=== PATIENT | male | born 1960 | race Caucasian/White ===

== ENCOUNTER 2017-02-23 23:59 | Emergency (ER) | payer SELFPAY ==
[~2017-02-23 23:59] MED LIST: ACET500CAP PO; FLOMAX4 PO; NORV5 PO; PERCOCET1 TA4 PO; SEROQUEL50 MG PO; XARELTO20 MG PO
[2017-02-24 02:48] LABS: BASOPHILS 0.6 %; BASOPHILS ABSOLUTE 0.04 10/3/uL (0.0-0.16); EOSINOPHILS 19.3 %; EOSINOPHILS ABSOLUTE 1.33 10/3/uL (0.0-0.53); HEMOGLOBIN 12.1 g/dL (13.6-17.8); IMMATURE GRANULOCYTES 0.4 %; IMMATURE GRANULOCYTES ABSOLUTE 0.03 10/3/uL (0.0-0.11); LYMPHOCYTES 10.2 %; MEAN CORPUS HGB CONC 34.3 g/dL (32.0-36.0); MEAN CORPUSCULAR HEMOGLOB 32.8 pg (26.0-34.0); MONOCYTES 8.3 %; MONOCYTES ABSOLUTE 0.57 10/3/uL (0.21-1.20); NEUTROPHILS 61.2 %; NEUTROPHILS ABSOLUTE 4.21 10/3/uL (2.02-8.40); PLATELET COUNT 299 10/3/uL (150-400); RBC DISTRIBUTION WIDTH 14.2 % (12.0-16.0); RED CELL COUNT 3.69 10/6/uL (4.7-6.1); WHITE BLOOD CELLS 6.9 10/3/uL (4.5-10.5)
[2017-02-24 02:49] LABS: ER CBC TAT 0 Hrs 05 MinsNP; HEMATOCRIT 35.3 % (40.0-51.0); MANUAL DIFF NO %; MEAN CORPUSCULAR VOLUME 95.7 fL (80-100)
[2017-02-24 03:03] LABS: A/G RATIO 0.8 (0.7-1.9); ALBUMIN 3.2 G/DL (3.5-5.0); ALKALINE PHOSPHATASE 130 U/L (45-117); BUN (BLOOD UREA NITROGEN) 8 MG/DL (6-23); CHLORIDE, SERUM 109 MMOL/L (96-112); CO2 (CARBON DIOXIDE) 21 MMOL/L (24-34); GFR AFRICAN AMERICAN 96 ML/MIN (>=60); GFR NON AFRICAN AMERICAN 83 ML/MIN (>=60); GLOBULIN 3.9 G/DL (2.5-4.1); GLUCOSE, SERUM 99 MG/DL (60-99); POTASSIUM, SERUM 3.8 MMOL/L (3.5-5.3); SGOT(AST) 69 U/L (5-40); SGPT(ALT) 54 U/L (5-65); SODIUM, SERUM 142 MMOL/L (135-148); TOTAL BILIRUBIN 0.3 MG/DL (0-1.2); TOTAL PROTEIN 7.1 G/DL (6.0-8.5)
== END 2017-02-24 09:11 | disposition home or self-care (01) ==
LOC: ER 23:59
PROVIDERS: Nurse Practitioner Acute Care
DX: B86 Scabies (principal); L30.9 Dermatitis, unspecified; B88.9 Infestation, unspecified; Z79.899 Other long term (current) drug therapy
CPT/HCPCS: 80053; 81001; 85025; 87040; 99284; A9270-GY

== ENCOUNTER 2017-03-10 08:36 | Emergency (ER) | payer SELFPAY | END 2017-03-10 09:48 | disposition home or self-care (01) | LOC: ER 08:36 | DX: S42.031A Displaced fracture of lateral end of right clavicle, initial encounter for closed fracture (principal); F31.9 Bipolar disorder, unspecified; Z79.899 Other long term (current) drug therapy; X58.XXXA Exposure to other specified factors, initial encounter | CPT/HCPCS: 73030-RT; 99283; A9270-GY ==

== ENCOUNTER 2017-03-12 20:15 | Emergency (ER) | payer SELFPAY ==
[2017-03-12 19:58] LABS: AMPHETAMINES (NOT ORD) NEG (NEG); BARBITURATES (NOT ORDERED NEG (NEG); BENZODIAZEPINES (NOT ORD) NEG (NEG); CANNABINOIDS (THC) NEG (NEG); COCAINE (NOT ORDERED) NEG (NEG); OPIATES NEG (NEG); PHENCYCLIDINE(PCP) NEG (NEG); TRICYCLICS NEG (NEG)
[2017-03-12 19:59] LABS: ALCOHOL 231 MG/DL (0)
[2017-03-12 20:00] LABS: ACETAMINOPHEN LEVEL (TYLENOL) < 2.0 MCG/ML (10.0-20.0); SALICYLATE < 1.7 MG/DL (-)
== END 2017-03-12 20:40 | disposition home or self-care (01) ==
LOC: ER 20:15
PROVIDERS: Nurse Practitioner Acute Care
DX: S42.001D Fracture of unspecified part of right clavicle, subsequent encounter for fracture with routine healing (principal); F10.129 Alcohol abuse with intoxication, unspecified; R21 Rash and other nonspecific skin eruption; L29.9 Pruritus, unspecified; F31.9 Bipolar disorder, unspecified; Z79.899 Other long term (current) drug therapy; W57.XXXA Bitten or stung by nonvenomous insect and other nonvenomous arthropods, initial encounter
CPT/HCPCS: 73030-RT; 73080-LT; 80305; 80307; 99284